=== PATIENT | male | born 1995 | race Caucasian/White ===

== ENCOUNTER 2017-03-01 16:23 | Emergency (ER) | payer OTHER ==
[2017-03-01 16:27] VITALS: RESP 18
--- NOTE | 2017-03-01 16:45 | ED ---
General Adult HPI - General Chief complaint: Overdose Stated complaint: overdose Time Seen by Provider: 03/01/17 16:37 Source: patient, EMS, RN notes reviewed, old records reviewed Mode of arrival: EMS Limitations: no limitations - History of Present Illness Initial comments: This is a 22-year-old male to the ER for evaluation. Patient is a for evaluation regarding drug abuse. Patient denies homicidal or suicidal, patient was given Narcan by EMS, didn't return to normal mental state. Patient maintained pulses throughout. At this time denies any complaints. Not homicidal or suicidal - Related Data Home Medications Medication Instructions Recorded Confirmed Gabapentin [Neurontin] 300 mg PO TID 03/01/17 03/01/17 traZODone HCL 100 mg PO HS 03/01/17 03/01/17 Allergies Allergy/AdvReac Type Severity Reaction Status Date / Time No Known Allergies Allergy Verified 03/01/17 16:27 Review of Systems ROS Statement: Those systems with pertinent positive or pertinent negative responses have been documented in the HPI. ROS Other: All systems not noted in ROS Statement are negative. Past Medical History Past Medical History: No Reported History History of Any Multi-Drug Resistant Organisms: None Reported Additional Past Surgical History / Comment(s): hernia repair Past Psychological History: Anxiety, Bipolar, Depression Smoking Status: Current every day smoker Past Alcohol Use History: Abuse Past Drug Use History: Heroin General Exam Limitations: no limitations General appearance: alert, in no apparent distress Head exam: Present: atraumatic, normocephalic, normal inspection Eye exam: Present: normal appearance, PERRL, EOMI. Absent: scleral icterus, conjunctival injection, periorbital swelling ENT exam: Present: normal exam, mucous membranes moist Neck exam: Present: normal inspection. Absent: tenderness, meningismus, lymphadenopathy Respiratory exam: Present: normal lung sounds bilaterally. Absent: respiratory distress, wheezes, rales, rhonchi, stridor Cardiovascular Exam: Present: regular rate, normal rhythm, normal heart sounds. Absent: systolic murmur, diastolic murmur, rubs, gallop, clicks GI/Abdominal exam: Present: soft, normal bowel sounds. Absent: distended, tenderness, guarding, rebound, rigid Extremities exam: Present: normal inspection, full ROM, normal capillary refill. Absent: tenderness, pedal edema, joint swelling, calf tenderness Back exam: Present: normal inspection Neurological exam: Present: alert, oriented X3, CN II-XII intact Psychiatric exam: Present: normal affect, normal mood Skin exam: Present: warm, dry, intact, normal color. Absent: rash Course Vital Signs 03/01/17 16:24 Temperature 97.6 F Pulse Rate 107 H Respiratory 18 Rate Blood Pressure 154/78 O2 Sat by Pulse 95 Oximetry - Reevaluation(s) Reevaluation #1: 03/01/17 16:44 Patient awake and alert, not homicidal or suicidal Medical Decision Making - Medical Decision Making 19 female the ER for evaluation. The patient presents here for evaluation status post heroin overdose, occasional drug use, recreational recreational drug use had no other drugs ingested Disposition Clinical Impression: Drug overdose, Poisoning by opiate or related narcotic Disposition: HOME SELF-CARE Instructions: Opioid Overdose (ED) Referrals: Nonstaff,Physician [Primary Care Provider] - 1-2 days
[2017-03-01] MEDS ORDERED: SODIUM CHLORIDE 0.9% 500 ML IV STA (16:48)
[2017-03-01] MEDS ORDERED: ONDANSETRON 4 MG/2 ML VIAL IVP STA (16:48)
[2017-03-01] MEDS ORDERED: FAMOTIDINE 20 MG/2 ML VIAL IV STA (16:48)
[2017-03-01 17:19] VITALS: BP 137/61; PULSE 78; TEMP 98.5
== END 2017-03-01 17:20 | disposition home or self-care (01) ==
LOC: EC 16:23
DX: T40.691A Poisoning by other narcotics, accidental (unintentional), initial encounter (principal); F31.9 Bipolar disorder, unspecified; F17.200 Nicotine dependence, unspecified, uncomplicated; Z79.899 Other long term (current) drug therapy
CPT/HCPCS: 99284; 96374; 96375; J2405